=== PATIENT | female | born 1950 | race African-American/Black ===

== ENCOUNTER 2024-05-09 08:50 | Inpatient (IN) | payer BC, MEDICARE ==
[~2024-05-09] VITALS: Ht 172.7 cm; Wt 94.8 kg
[2024-05-09 10:00] VITALS: PULSE 72; RESP 20
[2024-05-09] MEDS: IPRATROPIUM BROMIDE (0.02%) 0.5MG/2.5ML NEB HHN STA (10:01)
[2024-05-09] MEDS: ALBUTEROL (0.083%) 2.5MG/3ML NEB HHN STA (10:02)
[2024-05-09 10:07] LABS: HEMATOCRIT. 39.3 % (36.0-48.0); HEMOGLOBIN. 12.8 g/dL (12.0-16.0); MEAN CORPUSCULAR HGB CONC 32.5 g/dL (31.0-37.0); MEAN CORPUSCULAR VOLUME 101.7 fL (81.0-99.0); MEAN PLATELET VOLUME 8.6 fl (7.4-10.4); PLATELET 165 x1000/uL (130-400); RED BLOOD CELL COUNT 3.87 mill/uL (4.2-5.4); RED CELL DISTRIBUTION WIDTH 22.2 % (11.6-14.6); WHITE BLOOD COUNT 6.1 x1000/uL (4.5-11.0)
[2024-05-09 10:17] LABS: DIFFERENTIAL COMMENT 1
[2024-05-09 10:26] LABS: CHLORIDE 102 mEq/L (98-107); SODIUM 142 mEq/L (136-145)
[2024-05-09 10:27] LABS: CARBON DIOXIDE 32 mEq/L (21-32)
[2024-05-09 10:28] LABS: CALCIUM 9.9 mg/dL (8.7-10.4)
[2024-05-09 10:33] LABS: GLUCOSE 128 mg/dL (70-105); UREA NITROGEN BLOOD 45 mg/dL (9-23)
[2024-05-09 10:34] LABS: ALANINE AMINOTRANSFERASE 103 IU/L (10-49); ALBUMIN 4.4 g/dL (3.2-4.8); ASPARTATE AMINOTRANSFERASE 69 IU/L (<34)
[2024-05-09 10:35] LABS: BILIRUBIN DIRECT 0.3 mg/dL (<=3.0); BILIRUBIN TOTAL 0.9 mg/dL (0.1-1.0); PROTEIN TOTAL 7.6 g/dL (6.0-8.3)
[2024-05-09 10:49] LABS: CREATININE 6.7 mg/dL (0.6-1.0); TROPONIN I HIGH SENSITIVITY 48 ng/L (3.0-34)
[2024-05-09 11:06] LABS: ANISOCYTOSIS 3+; PLATELET ESTIMATE NORMAL
[2024-05-09 16:04] LABS: TROPONIN I HIGH SENSITIVITY 46 ng/L (3.0-34)
[2024-05-09] MEDS: CARVEDILOL 12.5MG TABLET PO SCH (17:00)
[2024-05-09 20:00] VITALS: BP 154/100; PULSE 114; RESP 18; TEMP 36.28068; O2SAT 97
[2024-05-10] VITALS (7 sets, daily range): BP systolic 119–140; BP diastolic 72–92; PULSE 73–111; RESP 18–20; TEMP 36.22512–36.78072; O2SAT 95–100
[2024-05-10] MEDS ORDERED: IPRATROPIUM/ALBUTEROL 0.5-3(2.5)MG/3ML NEB HHN PRN
[2024-05-10] MEDS ORDERED: FOLI0.8T23 PO (01:16)
[2024-05-10] MEDS ORDERED: P50 PO (01:16)
[2024-05-10] MEDS ORDERED: APIX5TAB PO (01:16)
[2024-05-10] MEDS ORDERED: FURO20TA4 PO (01:16)
[2024-05-10] MEDS ORDERED: METO25TA6 PO (01:16)
[2024-05-10] MEDS ORDERED: LOSA50TA41 (01:16)
[2024-05-10] MEDS ORDERED: GABA-529 PO (01:16)
[2024-05-10 07:29] LABS: CALCIUM 9.5 mg/dL (8.7-10.4)
[2024-05-10 07:39] LABS: HEMATOCRIT 35.8 % (36.0-48.0); HEMOGLOBIN 11.9 g/dL (12.0-16.0); MEAN CORPUSCULAR HEMOGLOBIN 33.7 pg (28.0-32.0); MEAN CORPUSCULAR HGB CONC 33.1 g/dL (31.0-37.0); MEAN CORPUSCULAR VOLUME 101.7 fL (81.0-99.0); PLATELET 139 x1000/uL (130-400); RED BLOOD CELL COUNT 3.52 mill/uL (4.2-5.4); RED CELL DISTRIBUTION WIDTH 21.8 % (11.6-14.6)
[2024-05-10 07:54] LABS: CREATININE 8.2 mg/dL (0.6-1.0)
[2024-05-10] MEDS ORDERED: ONDANSETRON HCL 4MG/2ML INJ IV PRN (08:15)
[2024-05-10] MEDS: ENOXAPARIN 30MG/0.3ML SYR SUBCUT SCH (08:38)
[2024-05-10] MEDS: FUROSEMIDE 20MG TABLET PO SCH (08:38)
[2024-05-10] MEDS: PANTOPRAZOLE 40MG DR TABLET PO SCH (08:39)
[2024-05-10] MEDS: FOLIC ACID/VITAMIN B COMP W-C TABLET PO SCH (08:39)
[2024-05-10] MEDS: APIXABAN 5 MG TABLET PO SCH (09:15)
[2024-05-10] MEDS: DILTIAZEM HCL 5MG/ML 5ML VIAL IV SCH (09:49)
[2024-05-10 11:14] LABS: CLARITY URINE CLEAR (CLEAR); COLOR URINE YELLOW (YELLOW); GLUCOSE URINE NEGATIVE (NEGATIVE); KETONES URINE NEGATIVE (NEGATIVE); LEUKOCYTE ESTERASE URINE NEGATIVE (NEGATIVE); NITRITE URINE NEGATIVE (NEGATIVE); OCCULT BLOOD URINE NEGATIVE (NEGATIVE); PH URINE >=9.0 (4.5-8.0); PROTEIN URINE 2+ (NEGATIVE); SPECIFIC GRAVITY URINE 1.013 (1.005-1.030); UROBILINOGEN URINE 0.2 E.U./dL (0.2-1.0)
[2024-05-10 11:27] LABS: *AMPHETAMINES SCREEN URINE NEGATIVE (NEGATIVE); *BARBITURATES SCREEN URINE NEGATIVE (NEGATIVE); *BENZODIAZEPINES SCREEN URINE NEGATIVE (NEGATIVE); *COCAINE SCREEN URINE NEGATIVE (NEGATIVE); METHADONE URINE SCREEN NEGATIVE (NEGATIVE)
[2024-05-10 11:28] LABS: CANNABINOID URINE SCREEN NEGATIVE (NEGATIVE); ECSTASY MDMA SCREEN URINE NEGATIVE (NEGATIVE); OPIATES URINE SCREEN NEGATIVE (NEGATIVE); PHENCYCLIDINE URINE SCREEN NEGATIVE (NEGATIVE)
[2024-05-10 11:33] LABS: BACTERIA URINE 1+; RBC URINE 0-2 /hpf (0-2); SQUAMOUS EPITHELIAL CELL URINE 2+ /lpf (RARE/1+); WBC URINE 0-2 /hpf (0-2); YEAST URINE NONE SEEN
[2024-05-10 19:08] LABS: HEPATITIS B SURFACE ANTIGEN NEGATIVE (Negative)
[2024-05-10 19:29] LABS: HEPATITIS A AB IGM NEGATIVE (Negative)
[2024-05-10 19:30] LABS: HEPATITIS B CORE AB IGM NEGATIVE (Negative); HEPATITIS C AB NON REACTIVE (Neg) (Negative)
[2024-05-10 20:54] LABS: INR 1.1; PROTHROMBIN TIME 11.9 sec (9.6-11.0)
[2024-05-10] MEDS: GABAPENTIN 100MG CAPSULE PO SCH (21:16)
[2024-05-10] MEDS: TRAZODONE HCL 50MG TABLET PO SCH (21:17)
[2024-05-10] MEDS: LOSARTAN 50 MG TABLET PO SCH (21:17)
[2024-05-10] MEDS: ENOXAPARIN 60MG/0.6ML SYR SUBCUT NR (22:21)
[2024-05-11] VITALS (14 sets, daily range): BP systolic 104–139; BP diastolic 58–90; PULSE 75–110; RESP 16–20; TEMP 36.22512–37.00296; O2SAT 95–100
[2024-05-11 07:51] LABS: POTASSIUM 4.1 mEq/L (3.5-5.1)
[2024-05-11 07:53] LABS: CALCIUM 9.1 mg/dL (8.7-10.4)
[2024-05-11 07:57] LABS: BASOPHILS % 0.4 % (0.0-2.0); DIFFERENTIAL COMMENT 0; EOSINOPHILS % 2.9 % (0.0-5.0); HEMATOCRIT. 37.7 % (36.0-48.0); HEMOGLOBIN. 12.1 g/dL (12.0-16.0); LYMPHOCYTES % 27.7 % (20.0-50.0); MEAN CORPUSCULAR HGB CONC 32.1 g/dL (31.0-37.0); MEAN PLATELET VOLUME 9.3 fl (7.4-10.4); MONOCYTES % 11.3 % (2.0-8.0); NEUTROPHILS % 57.7 % (40.0-76.0); PLATELET 132 x1000/uL (130-400); RED BLOOD CELL COUNT 3.66 mill/uL (4.2-5.4); RED CELL DISTRIBUTION WIDTH 21.9 % (11.6-14.6); WHITE BLOOD COUNT 5.1 x1000/uL (4.5-11.0)
[2024-05-11 08:00] LABS: T4 FREE 1.55 ng/dL (0.89-1.76); THYROID STIMULATING HORMONE 0.27 uIU/mL (0.55-4.78)
[2024-05-11 08:16] LABS: CREATININE 9.8 mg/dL (0.6-1.0)
[2024-05-11] MEDS: SEVELAMER CARBONATE 800 MG TABLET PO SCH (14:08)
[2024-05-11] MEDS: ENOXAPARIN 100MG/ML SYR SUBCUT SCH (21:01)
[2024-05-12] VITALS: BP 105/66; PULSE 109; RESP 20; TEMP 36.22512; O2SAT 100
[2024-05-12] MEDS: ACETAMINOPHEN 325MG TABLET PO PRN (00:36)
[2024-05-12 04:00] VITALS: BP 115/70; PULSE 116; RESP 18; TEMP 36.16956
[2024-05-12 08:00] VITALS: BP 117/73; PULSE 107; RESP 19; TEMP 36.72516; O2SAT 97
[2024-05-12 12:00] VITALS: BP 115/69; PULSE 110; RESP 18; TEMP 36.78072; O2SAT 99
[2024-05-12] MEDS: DILTIAZEM HCL 30MG TABLET PO SCH (14:00)
[2024-05-12 16:00] VITALS: BP 105/65; PULSE 87; RESP 17; TEMP 36.72516; O2SAT 99
[2024-05-12 20:00] VITALS: BP 142/92; PULSE 72; RESP 19; TEMP 36.44736; O2SAT 98
[2024-05-13] VITALS (10 sets, daily range): BP systolic 100–131; BP diastolic 50–83; PULSE 62–100; RESP 18–20; TEMP 36.33624–36.89184; O2SAT 97–100
[2024-05-13 15:56] LABS: BASOPHILS % 0.4 % (0.0-2.0); DIFFERENTIAL COMMENT 1; EOSINOPHILS % 4.1 % (0.0-5.0); HEMATOCRIT. 39.7 % (36.0-48.0); LYMPHOCYTES % 14.4 % (20.0-50.0); MEAN CORPUSCULAR HEMOGLOBIN 34.1 pg (28.0-32.0); MEAN CORPUSCULAR HGB CONC 32.7 g/dL (31.0-37.0); MEAN CORPUSCULAR VOLUME 104.3 fL (81.0-99.0); MEAN PLATELET VOLUME 9.3 fl (7.4-10.4); NEUTROPHILS % 67.1 % (40.0-76.0); PLATELET 119 x1000/uL (130-400); RED CELL DISTRIBUTION WIDTH 22.1 % (11.6-14.6); WHITE BLOOD COUNT 4.2 x1000/uL (4.5-11.0)
[2024-05-13 16:10] LABS: POTASSIUM 3.9 mEq/L (3.5-5.1)
[2024-05-13 16:11] LABS: CALCIUM 9.2 mg/dL (8.7-10.4)
[2024-05-13 16:22] LABS: CREATININE 6.9 mg/dL (0.6-1.0)
[2024-05-13] MEDS: DIPHENHYDRAMINE 50MG CAPSULE PO PRN (21:09)
[2024-05-13] MEDS: IOHEXOL-350 100 ML BOTTLE ONE (22:03)
[2024-05-14] VITALS (10 sets, daily range): BP systolic 105–120; BP diastolic 55–67; PULSE 66–97; RESP 17–19; TEMP 36.33624–37.00296; O2SAT 96–100
[2024-05-15] VITALS: BP 117/69; PULSE 115; RESP 18; TEMP 37.00296; O2SAT 98
[2024-05-15 04:00] VITALS: BP 112/73; PULSE 109; RESP 18; TEMP 36.55848; O2SAT 99
[2024-05-15 08:11] VITALS: BP 113/69; PULSE 97; RESP 20; TEMP 36.9474; O2SAT 99
[2024-05-15 08:50] LABS: BASOPHILS % 0.4 % (0.0-2.0); DIFFERENTIAL COMMENT 0; EOSINOPHILS % 5.4 % (0.0-5.0); HEMATOCRIT. 40.5 % (36.0-48.0); HEMOGLOBIN. 13.2 g/dL (12.0-16.0); LYMPHOCYTES % 14.8 % (20.0-50.0); MEAN CORPUSCULAR HEMOGLOBIN 33.6 pg (28.0-32.0); MEAN CORPUSCULAR HGB CONC 32.7 g/dL (31.0-37.0); MEAN CORPUSCULAR VOLUME 102.8 fL (81.0-99.0); MEAN PLATELET VOLUME 9.4 fl (7.4-10.4); MONOCYTES % 13.5 % (2.0-8.0); NEUTROPHILS % 65.9 % (40.0-76.0); PLATELET 125 x1000/uL (130-400); RED BLOOD CELL COUNT 3.94 mill/uL (4.2-5.4); RED CELL DISTRIBUTION WIDTH 21.5 % (11.6-14.6); WHITE BLOOD COUNT 4.6 x1000/uL (4.5-11.0)
[2024-05-15 08:53] LABS: POTASSIUM 4.3 mEq/L (3.5-5.1)
[2024-05-15 08:55] LABS: CALCIUM 9.2 mg/dL (8.7-10.4)
[2024-05-15 09:15] LABS: CREATININE 7.7 mg/dL (0.6-1.0)
[2024-05-15 12:27] VITALS: BP 101/57; PULSE 107; RESP 18; TEMP 36.3918; O2SAT 98
[2024-05-15 16:00] VITALS: BP 110/77; PULSE 77; RESP 20; TEMP 37.16964; O2SAT 100
[2024-05-15 20:00] VITALS: BP 125/80; PULSE 108; RESP 17; TEMP 37.00296; O2SAT 100
[2024-05-16] VITALS (14 sets, daily range): BP systolic 100–126; BP diastolic 50–74; PULSE 62–87; RESP 16–20; TEMP 36.44736–37.16964; O2SAT 10–100
[2024-05-17] VITALS (7 sets, daily range): BP systolic 87–135; BP diastolic 45–77; PULSE 61–108; RESP 18–27; TEMP 36.114–37.94748; O2SAT 96–99
[2024-05-17 11:23] LABS: CHLORIDE 107 mEq/L (98-107); POTASSIUM 4.6 mEq/L (3.5-5.1); SODIUM 141 mEq/L (136-145)
[2024-05-17 11:24] LABS: CALCIUM 9.3 mg/dL (8.7-10.4); CARBON DIOXIDE 25 mEq/L (21-32); HEMATOCRIT. 37.9 % (36.0-48.0); HEMOGLOBIN. 12.6 g/dL (12.0-16.0); MEAN CORPUSCULAR HEMOGLOBIN 33.9 pg (28.0-32.0); MEAN CORPUSCULAR HGB CONC 33.2 g/dL (31.0-37.0); MEAN PLATELET VOLUME 9.6 fl (7.4-10.4); PLATELET 124 x1000/uL (130-400); RED BLOOD CELL COUNT 3.72 mill/uL (4.2-5.4); RED CELL DISTRIBUTION WIDTH 20.8 % (11.6-14.6); WHITE BLOOD COUNT 9.3 x1000/uL (4.5-11.0)
[2024-05-17 11:29] LABS: GLUCOSE 117 mg/dL (70-105); UREA NITROGEN BLOOD 49 mg/dL (9-23)
[2024-05-17 11:31] LABS: PHOSPHORUS 3.2 mg/dL (2.5-4.9)
[2024-05-17 11:38] LABS: DIFFERENTIAL COMMENT 1
[2024-05-17 11:39] LABS: CREATININE 9.1 mg/dL (0.6-1.0)
[2024-05-17] MEDS ORDERED: FENTANYL CITRATE/PF 50MCG/ML 2ML VIAL ONE (12:32)
[2024-05-17] MEDS ORDERED: LIDOCAINE HCL 1% 20ML VIAL ONE (12:32)
[2024-05-17] MEDS ORDERED: IODIXANOL 320 MG/ML 150ML BOTTLE IV ONE (12:32)
[2024-05-17] MEDS ORDERED: MIDAZOLAM HCL 2 MG/2 ML VIAL ONE (12:32)
[2024-05-17] MEDS ORDERED: HEPARIN 1000 UNITS/ML 10ML ONE (12:32)
[2024-05-17] MEDS ORDERED: IODIXANOL 320MG/ML 100 ML BOTTLE IV ONE (12:33)
[2024-05-17] MEDS ORDERED: DIPHENHYDRAMINE 50MG/ML VIAL ONE (13:00)
[2024-05-17 14:48] LABS: ANISOCYTOSIS 2+; PLATELET ESTIMATE SLIGHTLY DECREASED
[2024-05-17] MEDS: METOPROLOL TARTRATE 25MG TABLET PO NR (17:39)
[2024-05-18] VITALS (7 sets, daily range): BP systolic 91–120; BP diastolic 47–69; PULSE 79–128; RESP 13–28; TEMP 36.9474–37.7808; O2SAT 96–98
[2024-05-18] MEDS: DIGOXIN 500MCG/2ML AMP IV NR (06:01)
[2024-05-18 06:25] LABS: HEMATOCRIT. 39.4 % (36.0-48.0); HEMOGLOBIN. 12.6 g/dL (12.0-16.0); MEAN CORPUSCULAR HEMOGLOBIN 33.1 pg (28.0-32.0); MEAN CORPUSCULAR HGB CONC 32.1 g/dL (31.0-37.0); MEAN CORPUSCULAR VOLUME 103.2 fL (81.0-99.0); PLATELET 122 x1000/uL (130-400); RED BLOOD CELL COUNT 3.82 mill/uL (4.2-5.4); RED CELL DISTRIBUTION WIDTH 20.9 % (11.6-14.6)
[2024-05-18 06:44] LABS: DIFFERENTIAL COMMENT 1
[2024-05-18] MEDS ORDERED: CEFEPIME 1GM IN DEXT 5% 50ML IV SCH (15:00)
[2024-05-18] MEDS: IOHEXOL-350 100 ML BOTTLE ONE (16:52)
[2024-05-18] MEDS: CEFEPIME 1GM/50ML 50 ML IV SCH (16:56)
[2024-05-18] MEDS: VANCOMYCIN 1.5GM PMX (XELLIA) 300 ML IV NR (17:52)
[2024-05-19] VITALS (15 sets, daily range): BP systolic 75–123; BP diastolic 48–97; PULSE 80–124; RESP 16–31; TEMP 36.3918–38.0586; O2SAT 95–99
[2024-05-19 05:16] LABS: PLATELET ESTIMATE NORMAL
[2024-05-19 06:32] LABS: BASOPHILS % 0.1 % (0.0-2.0); DIFFERENTIAL COMMENT 0; EOSINOPHILS % 5.3 % (0.0-5.0); HEMATOCRIT. 37.6 % (36.0-48.0); LYMPHOCYTES % 8.8 % (20.0-50.0); MEAN CORPUSCULAR VOLUME 103.1 fL (81.0-99.0); MEAN PLATELET VOLUME 9.6 fl (7.4-10.4); MONOCYTES % 7.2 % (2.0-8.0); NEUTROPHILS % 78.6 % (40.0-76.0); PLATELET 109 x1000/uL (130-400); RED BLOOD CELL COUNT 3.65 mill/uL (4.2-5.4); RED CELL DISTRIBUTION WIDTH 20.8 % (11.6-14.6); WHITE BLOOD COUNT 11.2 x1000/uL (4.5-11.0)
[2024-05-19 06:43] LABS: CHLORIDE 104 mEq/L (98-107); POTASSIUM 5.2 mEq/L (3.5-5.1); SODIUM 138 mEq/L (136-145)
[2024-05-19 06:44] LABS: CALCIUM 9.7 mg/dL (8.7-10.4); CARBON DIOXIDE 23 mEq/L (21-32)
[2024-05-19 06:49] LABS: GLUCOSE 119 mg/dL (70-105); UREA NITROGEN BLOOD 71 mg/dL (9-23)
[2024-05-19 06:51] LABS: PHOSPHORUS 3.1 mg/dL (2.5-4.9)
[2024-05-19 06:58] LABS: CREATININE 12.1 mg/dL (0.6-1.0)
[2024-05-20] VITALS: BP 106/60; PULSE 98; RESP 18; TEMP 36.50292; O2SAT 98
[2024-05-20 04:00] VITALS: BP 106/59; PULSE 77; RESP 20; TEMP 36.44736; O2SAT 98
[2024-05-20 07:09] LABS: BASOPHILS % 0.1 % (0.0-2.0); DIFFERENTIAL COMMENT 0; EOSINOPHILS % 8.6 % (0.0-5.0); HEMATOCRIT. 36.5 % (36.0-48.0); HEMOGLOBIN. 11.7 g/dL (12.0-16.0); LYMPHOCYTES % 11.9 % (20.0-50.0); MEAN CORPUSCULAR HGB CONC 31.9 g/dL (31.0-37.0); MEAN CORPUSCULAR VOLUME 103.2 fL (81.0-99.0); MEAN PLATELET VOLUME 9.6 fl (7.4-10.4); MONOCYTES % 5.5 % (2.0-8.0); NEUTROPHILS % 73.9 % (40.0-76.0); PLATELET 111 x1000/uL (130-400); RED BLOOD CELL COUNT 3.54 mill/uL (4.2-5.4); RED CELL DISTRIBUTION WIDTH 20.3 % (11.6-14.6); WHITE BLOOD COUNT 7.8 x1000/uL (4.5-11.0)
[2024-05-20 07:25] LABS: POTASSIUM 4.6 mEq/L (3.5-5.1)
[2024-05-20 07:27] LABS: CALCIUM 9.4 mg/dL (8.7-10.4)
[2024-05-20 08:00] VITALS: BP 111/73; PULSE 95; RESP 23; TEMP 36.6696; O2SAT 98
[2024-05-20] MEDS: FAMOTIDINE 20MG TABLET PO SCH (08:08)
[2024-05-20 12:00] VITALS: BP 119/70; PULSE 81; RESP 24; TEMP 36.83628; O2SAT 98
[2024-05-20] MEDS: ENOXAPARIN 100MG/ML SYR SUBCUT SCH (12:50)
[2024-05-20 16:00] VITALS: BP 108/68; PULSE 96; RESP 23; TEMP 36.78072; O2SAT 96
[2024-05-20 20:00] VITALS: BP 118/57; PULSE 94; RESP 21; TEMP 36.78072; O2SAT 98
[2024-05-21] VITALS: BP 106/50; PULSE 82; RESP 25; TEMP 36.6696; O2SAT 96
[2024-05-21 04:00] VITALS: BP 113/79; PULSE 92; RESP 18; O2SAT 95
[2024-05-21 06:36] LABS: CARBON DIOXIDE 23 mEq/L (21-32); CHLORIDE 108 mEq/L (98-107); POTASSIUM 4.4 mEq/L (3.5-5.1); SODIUM 143 mEq/L (136-145)
[2024-05-21 06:38] LABS: CALCIUM 9.4 mg/dL (8.7-10.4)
[2024-05-21 06:42] LABS: BASOPHILS % 0.2 % (0.0-2.0); DIFFERENTIAL COMMENT 0; EOSINOPHILS % 11.4 % (0.0-5.0); GLUCOSE 94 mg/dL (70-105); HEMATOCRIT. 32.2 % (36.0-48.0); HEMOGLOBIN. 10.3 g/dL (12.0-16.0); LYMPHOCYTES % 20.7 % (20.0-50.0); MEAN CORPUSCULAR HEMOGLOBIN 33.1 pg (28.0-32.0); MEAN CORPUSCULAR HGB CONC 32.1 g/dL (31.0-37.0); MEAN CORPUSCULAR VOLUME 103.3 fL (81.0-99.0); MONOCYTES % 8.2 % (2.0-8.0); NEUTROPHILS % 59.5 % (40.0-76.0); PLATELET 112 x1000/uL (130-400); RED BLOOD CELL COUNT 3.12 mill/uL (4.2-5.4); RED CELL DISTRIBUTION WIDTH 20.2 % (11.6-14.6); WHITE BLOOD COUNT 6.4 x1000/uL (4.5-11.0)
[2024-05-21 06:43] LABS: UREA NITROGEN BLOOD 58 mg/dL (9-23)
[2024-05-21 06:45] LABS: PHOSPHORUS 2.6 mg/dL (2.5-4.9)
[2024-05-21 06:48] LABS: CREATININE 11.1 mg/dL (0.6-1.0)
[2024-05-21 08:00] VITALS: BP 107/50; PULSE 72; RESP 14; TEMP 36.78072; O2SAT 100
[2024-05-21 12:00] VITALS: BP 122/70; PULSE 71; RESP 16; TEMP 36.61404; O2SAT 100
[2024-05-21] MEDS ORDERED: LINE600T11 MT (13:06)
[2024-05-21] MEDS ORDERED: CEFD300C3 PO (13:06)
[2024-05-21] MEDS ORDERED: SEVE800T8 PO (13:10)
[2024-05-21] MEDS ORDERED: ATOR40TA70 MT (13:10)
[2024-05-21] MEDS ORDERED: COR12 PO (13:10)
[2024-05-21] MEDS ORDERED: DILT30TA3 PO (13:10)
[2024-05-21] MEDS: VANCOMYCIN 750MG/150ML (BAXTER) IV SCH (14:47)
[2024-05-21 15:36] VITALS: BP 122/70; PULSE 71; TEMP 97.9; O2SAT 99
[2024-05-21 16:00] VITALS: BP 118/76; PULSE 74; RESP 18; TEMP 36.6696; TEMP 36.66960; O2SAT 98
[2024-05-23] MEDS ORDERED: FAMOTIDINE 20MG TABLET PO SCH (09:00)
== END 2024-05-21 18:08 | disposition home health service (06) | DRG 219 ==
LOC: ER 08:50 → EDBEDREQ 12:41 → 5WST 15:22 → 7WST 23:59 → 3WST 05-17 18:40
PROVIDERS: ADMIT Internal Medicine; ATTEND Internal Medicine
PROC: 5A1D70Z Performance of Urinary Filtration, Intermittent, Less than 6 Hours Per Day (ICD-10-PCS; 2024-05-11)
PROC: 5A1D70Z Performance of Urinary Filtration, Intermittent, Less than 6 Hours Per Day (ICD-10-PCS; 2024-05-13)
PROC: 5A1D70Z Performance of Urinary Filtration, Intermittent, Less than 6 Hours Per Day (ICD-10-PCS; 2024-05-14)
PROC: 5A1D70Z Performance of Urinary Filtration, Intermittent, Less than 6 Hours Per Day (ICD-10-PCS; 2024-05-16)
PROC: 02VW3DZ Restriction of Thoracic Aorta, Descending with Intraluminal Device, Percutaneous Approach (ICD-10-PCS; principal; 2024-05-17)
PROC: B41F1ZZ Fluoroscopy of Right Lower Extremity Arteries using Low Osmolar Contrast (ICD-10-PCS; 2024-05-17)
PROC: B3101ZZ Fluoroscopy of Thoracic Aorta using Low Osmolar Contrast (ICD-10-PCS; 2024-05-17)
PROC: 5A1D70Z Performance of Urinary Filtration, Intermittent, Less than 6 Hours Per Day (ICD-10-PCS; 2024-05-19)
DX: I71.012 Dissection of descending thoracic aorta (principal); I21.4 Non-ST elevation (NSTEMI) myocardial infarction; N18.6 End stage renal disease; J45.901 Unspecified asthma with (acute) exacerbation; I12.0 Hypertensive chronic kidney disease with stage 5 chronic kidney disease or end stage renal disease; Z20.822 Contact with and (suspected) exposure to COVID-19; E87.70 Fluid overload, unspecified; I16.0 Hypertensive urgency; I48.0 Paroxysmal atrial fibrillation; D64.9 Anemia, unspecified; E11.22 Type 2 diabetes mellitus with diabetic chronic kidney disease; D69.6 Thrombocytopenia, unspecified; D72.829 Elevated white blood cell count, unspecified; D72.825 Bandemia; Z96.651 Presence of right artificial knee joint; Z79.899 Other long term (current) drug therapy; Z99.2 Dependence on renal dialysis; Z86.79 Personal history of other diseases of the circulatory system; Z79.01 Long term (current) use of anticoagulants; Z87.891 Personal history of nicotine dependence; Z63.4 Disappearance and death of family member; Z76.82 Awaiting organ transplant status; Z82.0 Family history of epilepsy and other diseases of the nervous system; Z82.49 Family history of ischemic heart disease and other diseases of the circulatory system
CPT/HCPCS: 36415; 71045; 71275; 74174; 80048; 80061; 80076; 80202; 80305; 81003; 83605; 83735; 83880; 84100; 84145; 84439; 84443; 84484; 85025; 85027; 85347; 86705; 86709; 87340; 87426; 87804; 90935; 93005; 93306; 94640; 97116; 97162; 99291; C1893; J0692; J1160; J1200; J1644; J1650; J2250; J3010; J3370; J3490; Q0163; Q9967